=== PATIENT | female | born 1990 | race Caucasian/White ===

== ENCOUNTER 2025-03-30 08:28 | Outpatient (OUT) | payer BC, SELFPAY ==
--- OUTSIDE RECORDS SUMMARY | 2025-03-20 05:22 | XMS_ITS | Continuity of Care Document ---
Author Organization [facility] Address [address] [place] [address] Phone Care Team Providers Care Dope Firer Name Role Phone Angy Vargas APRN Primary Care Provider Nicole Tyson MD Emergency Provider [phone] Sourav Mojica MD Admit Provider Miguel Mcgrath MD Attending Provider [phone] Angy Vargas APRN Attending Provider Care Teams Patient Care Team Team Status: Active Member Role/Relationship Status Dates Angy Vargas APRN Primary Care Provider Active Visit Care Team Team Status: Inactive Member Role/Relationship Status Dates Angy Vargas APRN Primary Care Provider Active Start: March 17, 2025 End: March 17, 2025Jesse Will ProviderActiveStart: March 17, 2025 End: March 17, 2025Levi Guillermo ProviderActiveStart: March 17, 2025 End: March 17ndLili Calderon ProviderActiveStart: March 17, 2025 End: March 17, 2025 Patient Care Team Team Status: Inactive Member Role/Relationship Status Dates Angy Vargas APRN Primary Care Provider Active Start: March 20, 2025 End: March 20, 2025Margarita Pickett ProviderActiveStart: March 20, 2025 End: March 20, 2025 Chief Complaint and Reason for Visit Chief Complaint Admit Date lt side pain, n/v March 17, 2025 12:17am pyelonephritis March 20, 2025 9:18am Reason for Visit Admit Date Pyelonephritis March 17, 2025 12:17am Reason for Referral Type Reason(s) Provider Provider Contact Information Gustabo rahman Address Start Date Follow-up with your Primary Care Provider, call office to reschedule if needed. Angy Vargas , APRNWork Phone: fpg [address], [address] [place] [address] Allergies, Adverse Reactions, Alerts Allergen Type Severity Reaction Last Updated Verified Status amoxicillin Allergy Unknown Hives February 9:34am Yes Active erythromycin base Allergy Unknown Hives Novembe 2024 9:34am Yes Active Penicillins Allergy Unknown Hives February 9:34am Yes Active Sulfa (Sulfonamide Antibiotics) Allergy Unknown Anaphylaxis March 20, 2025 9:34am Yes Active Social History Smoking Status Status Start Date End Date Date of Observa tion Never smoked tobacco (finding) March 17, 2025 2:24am Observation Status Observation Response Date of Response Legal Sex Female (finding) Sex Assigned At BirthFemaleA1990Pregnancy StatusNNove2024 Family History Relationship Condition Age at Onset Recorded Date/T lexi father Aortic aneurysm Unknown HypertensionUnknownCalculus of kidneyUnknownmotherDiabetes mellitusUnknown HypertensionUnknownGlaucomaUnknownMalignant neoplasm of cervixUnknown EndometriosisUnknownCyst of ovaryUnknownCerebrovascular accident (CVA)Unknownson Adopted childUnknowndaughterAdopted childUnknownfamily memberType 2 diabetes mellitusUnknownMalignant neoplasmUnknown Problems Active Problems Problem Diagnosis/Recorded Date Onset Date Status C omments Irregular menses October 18, 2024 10:58am Unknown Active Preglaucoma, unspecified, left eyeJune 2024 8:45amUnknownActiveInfertility October 16, 2024 8:37amUnknownActiveAnxietyJune 2024 8:37amUnknownActive DepressionJune 2024 8:37amUnknownActivePyelonephritisNovember 2024 12:56amUnknownActiveFibrocystic breastJune 2024 8:44amUnknownActive bilateralIron deficiency anemiaJune 2024 9:20amUnknownActiveEndometriosis October 16, 2024 8:38amUnknownActiveInactive/Resolved Problems Problem Diagnosis/Recorded Date Onset Date Status C omments Preglaucoma, unspecified, bilateral October 16, 2024 8:44am Unknown Resolved Medications Medication Status Dose Units Route Directions Qty Days Refills S tart Date Stop Date End Date Reason(s) Instructions Adherence Acetaminophen 500 mg Tablet Discontinued 1000 MG PO Every 6 hours as needed for Pain Scale 1 - 3 or fever 0 0March 17, 2025 12:00amNovember 2024 9:37amCiprofloxacin Hcl 500 mg qkfimdOnpzji573RTVGLcjos hauin2346UyckbpbbMarch 17, 2025 12:00amnext dose 03/17/25 pmComplies with drug therapyOndansetron Hcl 4 mg tqywbqUxucrx7EFIZMocmb 8 hours6 2024 12:00amComplies with drug therapy Procedures Procedure Date Performed Status CT abdomen pelvis w con March 16, 2025 10:5 1pm completed Urine Culture March 16, 2025 completed Relevant Diagnostic Tests and/or Laboratory Data Laboratory Results Test Collection Date/Time Result Date/Time Result Interpretation Reference Range Result Comment Performing Site Corrected White Blood Count March 17, 2025 7:33am March 17, 2025 8:29am 5.5 10*3/uL 3.8-11.[address] [place] [address] Ctr [id number] [address] [facility] 99827Fbzosygwodi WBC CountNov2024 7:33amNovember 2024 8:29am5.5 10*3/uL3.8-11.6FGrand [facility] [id number] [address] [facility] 32820Elz Blood CountNov2024 7:33amNovember 2024 8:29am4.39 10*6/uL3.60-5.00[facility] [id number] [address] [facility] 49375YgstuuiezmGywecxxu 2024 7:33amNovember 2024 8:29am 12.6 g/dL11.8-15.4FGrand [facility] [id number] [address] [facility] 50444FevcfbxjijUbllwvvw 2024 7:33amNovember 2024 8:29am 37.6 %34.0-46.4FGrand [facility] [id number] [address] [facility] 80006Qnop Corpuscular VolumeNovember 2024 7:33amNovember 2024 8:29am85.6 yW57-746DjbbcnkhgFairfield Medical Center [facility] [id number] [address] [facility] 57409Mldf Corpuscular HemoglobinNovember 2024 7:33amNovember 2024 8:29am28.8 pg24.7-34.3FGrand [facility] [id number] [address] [place] [address] 36157Mwga Corpuscular Hemoglobin ConcentNovember 2024 7:33am March 17, 2025 8:29am33.6 g/dL32.0-35.0[facility] [id number] [address] [place] [address] 27900Chs Cell Distribution WidthNovember 2024 7:33amNovember 2024 8:29am12.8 %11.9-15.3FGrand [facility] [id number] [address] [facility] 95709Dukivdak CountNovember 2024 7:33amNovember 2024 8:75mx337 10*3/aO675-918QspzmrobtFairfield Medical Center [facility] [id number] [address] [place] [address] 38793Ekkb Platelet VolumeNovember 2024 7:33amNovember 2024 8:29am8.6 fL6.3-10.7FGrand [facility] [id number] [address] [facility] 78092Ehkxqbgy Distribution WidthNovember 2025 8:51pmNovember 2024 10:12pm23.57 %Above high normal0.00-20.00For adults in ED, MDW > 20.0 may be associated with a higher risk of sepsis during the first 12 hrs of hospital admissionFairfield Medical Center [facility] [id number] [address] [facility] 601[address]Cucsaxashts (%) (Auto)March 17, 2025 7:33amNovember 2024 8:29am73.8 %.[facility] [id number] [address] [facility] 92486Ezcnsupasfv (%) (Auto)March 17, 2025 7:33amNovember 2024 8:29am18.6 %.[facility] [id number] [address] [facility] 18127Oaajxpsxc (%) (Auto)March 17, 2025 7:33amNovember 2024 8:29am7.1 %.[facility] [id number] [address] [facility] 63182Nxqocnajaig (%) (Auto)March 17, 2025 7:33amNovember 2024 8:29am0.3 %.[facility] [id number] [address] [facility] 73125Soyxtzrzr (%) (Auto)March 17, 2025 7:33amNovember 2024 8:29am0.2 %.[facility] [id number] [address] [facility] 85716Yvvvsuref RBC Relative Count (auto)March 17, 2025 7:33am March 17, 2025 8:29am0.1 /100{WBC}0-0.5FGrand [facility] [id number] [address] [facility] 284[address]Awgqtwpdkcq # (Auto)March 17, 2025 7:33amNovember 2024 8:29am4.0 10*3/uL1.8-7.7FGrand [facility] [id number] [address] [place] [address] 10309Hojdwxliees # (Auto)March 17, 2025 7:33amNovember 2024 8:29am1.0 10*3/uL1.00-4.8[facility] [id number] [address] [facility] 06733Otpegqrxz # (Auto)March 17, 2025 7:33amNovember 2024 8:29am0.4 10*3/uL0.0-0.8[facility] [id number] [address] [facility] 20996Ngfcubqmsaa # (Auto)March 17, 2025 7:33amNovember 2024 8:29am0.0 10*3/uL0.0-0.45[facility] [id number] [address] [place] 7987[address]Basophils # (Auto)March 17, 2025 7:33amNovember 2024 8:29am0.0 10*3/uL0.0-0.2FGrand [facility] [id number] [address] [facility] 434[address]Eslqm ColorNovember 2024 9:08pmNovember 2024 9:22pm YellowYellowFairfield Medical Center Ctr [id number] [address] [facility] 31133Tfrag AppearanceNovember 2024 9:08pmNovember 2024 9:22pmCloudyAbnormal (applies to non-numeric results)ClearFairfield Medical Center [facility]tr [id number] [address] [facility] 45278Vvtaz Specific GravityNov2024 9:08pmNovember 2024 9:22pm1.032Above high normal1.001-1.030[facility] [id number] [address] [facility] 30207Islzj pHNovember 2024 9:08pmNovember 2024 9:22pm7.0 5.0-9.0[facility] [id number] [address] [facility] 31572Olfob Leukocyte EsteraseNov2024 9:08pmNov2024 9:22pm3+Above high normalNegativeFairfield Medical Center C[facility] [id number] [address] [facility] 26572Mgued NitriteNovember 2024 9:08pmNovember 2024 9:22pmPositiveAbove high normalNegativeFirarcanums [facility] [id number] [address] [facility] 32586Mguiv ProteinNovember 2024 9:08pmNovember 2024 9:22pm30 mg/dLAbove high normalNegativeFairfield Medical Center [facility] [id number] [address] [facility] 78416Kjdhv Glucose (UA)March 16, 2025 9:08pmNov2024 9:22pmNormal mg/dLNormalFairfield Medical Center Ctr [id number] [address] [facility] 92172Qhgxj KetonesNov2024 9:08pmNovember 2024 9:22pm4+Above high normalNegativeFairfield Medical Center C[facility] [id number] [address] [facility] 41895Wvovg UrobilinogenNov2024 9:08pmNov2024 9:22pm2 mg/dLAbove high normalNormalFairfield Medical Center Ctr [id number] [address] [facility] 41[address]Vulaf BilirubinNov2024 9:08pmNovember 2024 9:22pmNegativeNegativeFirKettering Health [facility] [id number] [address] [facility] 20492Gqkxq Occult BloodNov2024 9:08pmNovember 2024 9:22pmTraceAbove high normalNegativeFairfield Medical Center C[facility] [id number] [address] [facility] 57507Ldrle RBCNovember 2024 9:08pmNovember 2024 9:25pm5- 9 [HPF]Above high normal0-4FGrand [facility] [id number] [address] [facility] 45857Yfgou WBCNovember 2024 9:08pmNovember 2024 9:25pm5- 9 [HPF]Above high normal0-4FGrand [facility] [id number] [address] [facility] 63685Ivijg Squamous Epithelial CellsNovember 2024 9:08pm March 16, 2025 9:71ge4-1 [HPF]Above high normal0-2FGrand [facility] [id number] [address] [facility] 15287Kntky BacteriaMarch 16, 2025 9:08pmMarch 16, 2025 9:25pm4+ [HPF]Above high normalNone SeenFairfield Medical Center Ctr [id number] [address] [facility] 60962Aeqng Hyaline CastsMarch 16, 2025 9:08pmMarch 16, 2025 9:25pmNone [LPF]0-8[facility] [id number] [address] [facility] 88083Temwi MucusNov2024 9:08pmMarch 16, 2025 9:25pm 3+ [LPF]Abnormal (applies to non-numeric results)[facility] [id number] [address] [facility] 19028Hyfcc HCG, QualitativeMarch 16, 2025 9:08pmMarch 16, 2025 9:23pmNegativeFairfield Medical Center Ctr [id number] [address] [facility] 385[address]Zylxakh LevelMarch 17, 2025 7:33amNove2024 8:46am99 mg/mO59-600UEV recommended reference rangeRandom Glucose Reference Range is dependent on time and content of last meal. Glucose of more than 200 mg/dL in a nonstressed, ambulatory subject supports the diagnosisof Diabetes Mellitus.[facility] [id number] [address] [facility] 01323Miycm Urea NitrogenMarch 17, 2025 7:33amNovember 2024 8:46am8 mg/dL7-25[facility] [id number] [address] [facility] 39011SkegwvxpetKwtuthfz 22nd, 2025 7:33amNovember 2024 8:46am 0.63 mg/dL0.60-1.20[facility] [id number] [address] [facility] 15485Uzdcxemhc GFR (CKD-EPI)March 17, 2025 7:33amNove2024 8:46am> 60.0 mL/MinFairfield Medical Center Ctr [id number] [address] [facility] 84511Lmykra LevelNovember 2024 7:33amNovember 2024 8:95sg976 mmol/H224-262RbdlpjjziFairfield Medical Center Ctr [id number] [address] [facility] 86655Tywvceeus LevelNovember 2024 7:33amNovember 2024 8:46am3.4 mmol/LBelow low normal3.5-5.1FGrand [facility] [id number] [address] [facility] 36034Llsnspnj LevelNovember 2024 7:33amNovember 2024 8:04jy046 mmol/O55-589RdhtpaicvFairfield Medical Center Ctr [id number] [address] [facility] 43182Ltnaok Dioxide LevelNovember 2024 7:33amNovember 2024 8:46am23.0 mmol/L21.0-31.0[facility] [id number] [address] [facility] 93977Nzuxm GapNovember 2024 7:33amNovember 2024 8:46am 10.4 mEq/L6.0-15.0[facility] [id number] [address] [facility] 76731Xzyuydc LevelNovember 2024 7:33amNovember 2024 8:46am8.6 mg/dL8.6-10.3FGrand [facility] [id number] [address] [place] [address]87[address]Magnesium LevelNovember 2024 7:33amNovember 2024 8:46am1.9 mg/dL1.9-2.7FGrand [facility] [id number] [address] [facility] 64395Nzrfp ProteinNovember 2024 8:51pmNovember 2024 10:21pm8.0 g/dL6.4-8.9[facility] [id number] [address] [facility] 94905SgfgxiwYfjlurzg 2024 8:51pmNov2024 10:21pm4.9 g/dL3.5-5.7FGrand [facility] [id number] [address] [facility] 47364OfnyzhykThhgwmxx 21st, 2025 8:51pmNov2024 10:21pm 3.1 g/dLFairfield Medical Center Ctr [id number] [address] [facility] 77652Naimqzx/Globulin RatioNovember 2024 8:51pmNov2024 10:21pm1.6FGrand [facility] [id number] [address] [facility] 70215Wypqr BilirubinMarch 16, 2025 8:51pmNov2024 10:21pm0.7 mg/dL0.3-1.0[facility] [id number] [address] [facility] 03959Kxwejs BilirubinMarch 16, 2025 8:51pmNov2024 10:21pm0.10 mg/dL0.03-0.18FGrand [facility] [id number] [address] [facility] 11999Jpqakerw BilirubinMarch 16, 2025 8:51pmNov2024 10:21pm0.6 mg/dLFairfield Medical Center Ctr [id number] [address] [facility] 98789Iulxzbalw Amino Transf (AST/SGOT)March 16, 2025 8:51pm March 16, 2025 10:21pm18 U/A02-72XskkdtowtFairfield Medical Center Ctr [id number] [address] [facility] 78819Cvjxjda Aminotransferase (ALT/SGPT)March 16, 2025 8:51pm March 16, 2025 10:21pm17 U/L7-52[facility] [id number] [address] [facility] 79424Ddopauis PhosphataseMarch 16, 2025 8:51pmNov2024 10:21pm87 U/T96-777WnfjtqajdFairfield Medical Center Ctr [id number] [address] [facility] 19827GwjzmpVcptavai 21st, 2025 8:51pmNov2024 10:21pm20.0 U/L11.0-82.0[facility] [id number] [address] [place] [address] 98129Tlqjikwy Creatinine Clearance (ChemMarch 17, 2025 7:33am March 17, 2025 8:84ha469.53[facility] [id number] [address] [place] [address] Microbiology Results Procedure Source Result Collection Date/Time Result Date/Time Result Comment Performing Site Urine Culture Urine, Clean-Voided Midstream Escherichia coli March 16, 2025 9:08pm March 18, 2025 9:51am [facility] [id number] [address] [place] [address]46 Diagnostic Imaging Reports Author Luke Nicole [facility] HospitalAuthoredMarch 16, 2025 11:11pmReport Dictated Date/TimeDictated ByStatusRadiology ReportMarch 16, 2025 11:11pm [facility] [place] [address] [place], [place] [address] CT Scan Report Signed Patient: Joyce Godwin MR#: [id number] : 1990 Acct:[id number] Age/Sex: 34 / F ADM Date: 5 Loc: ER Room: Type: [facility] ER Attending Dr: Copies to: Nicole Tyson MD~ Ordering Provider: Nicole Tyson MD Date of Service: 03/16/25 CT/CT abdomen pelvis w con: abdominal pain, periumbilical CT Abdomen and Pelvis withcontrast TECHNIQUE: Axial imaging with 2-D reconstruction. The CT exam was performed using one or more the following dose reduction techniques: Automated exposure control, adjustment of the MA and/or Kv according to patient size, or use of the iterative reconstruction technique. COMPARISON: None History: Periumbilical abdominal pain LIMITATIONS: None LOWER THORAX Unremarkable LIVER: Unremarkable GALLBLADDER: No gallbladder abnormality identified. BILE DUCTS: No dilatation SPLEEN: Unremarkable PANCREAS: Unremarkable ADRENAL GLANDS: Unremarkable KIDNEYS:Unremarkable AORTA: No abdominal aortic aneurysm identified. RETROPERITONEUM: No significant retroperitoneal abnormalities identified. MESENTERY:Unremarkable STOMACH:Unremarkable SMALL BOWEL: The small bowel loops are nondistended. APPENDIX: The appendix is normal. COLON: Unremarkable URINARY BLADDER: Urinary bladder is unremarkable. REPRODUCTIVE SYSTEM: Reproductive structures are unremarkable. PNEUMOPERITONEUM: None PERITONEAL FLUID:None BONY STRUCTURES: Unremarkable ABDOMINAL WALL: Unremarkable CT/CT abdomen pelvis w con IMPRESSION: No acute findings. Impression dictated by: Luke Nicole M.D. 03/16/2025 11:12 PM Dictation Location: [place] [address] Transcribed By: [facility] 03/16/252311 Dictated By: Luke Nicole DO 03/16/252310 Signed By: <Electronically signed by Luke Nicole DO in OV> 03/16/252311 Vital Signs Vital Reading Result Reference Range Collection Date/Time Height 65 [in_i] March 17, 2025 2:96vcOfefem94.80 kgNovember 2024 2:23amBody Uiihnmctwwk67.7 [degF]97.6-99.0Nov2024 9:42amHeart Rate93 /bzh25-130 March 17, 2025 9:42amRespiratory rate17 /nyr11-04GiszzaboMarch 17, 2025 9:42am Oxygen saturation by Pulse txobeusu38 %95-100March 17, 2025 9:42amBP Tkgrzkup439 mm[Hg]100-140March 17, 2025 9:42amBP Whuehzgte93 mm[Hg]60-100 March 17, 2025 9:40osBaaqti25 [in_i]March 20, 2025 9:52mbSewioa80.76 kgNov2024 9:33amBody Rnwmxpinpyi72.3 [degF]97.6-99.0March 20, 2025 9:33amHeart Rate65 /jsb45-062CfeulizoMarch 20, 2025 9:33amRespiratory rate20 /cod48-11SdrvjfhkMarch 20, 2025 9:33amOxygen saturation by Pulse gvvudolr71 %95-100 March 20, 2025 9:33amBP Xbhuqxpj916 mm[Hg]100-140March 20, 2025 9:33am BP Ciurwmbyp77 mm[Hg]60-100March 20, 2025 9:33amBMI (Body Mass Index)25.9 kg/i2TgccbyevMarch 20, 2025 9:33am Advance Directives Advance Directive Response Recorded Date/ Time Advance Directives No October 11 2:51pm Insurance Providers Guarantor Joyce Godwin Address [address] [facility] [address]Ztihyvl Info.Home Phone: Coverage Status Update:2024 Payer Group Member ID Coverage Type Subscriber Relationship to Subscriber Effective Date Expiration Date MMO Id: [id number] F Godwin Id: [id number] [address] [facility] [address] Home Phone: anthem BC/BS [id number] F Godwin Id: [id number] [address] [facility] [address] Home Phone: Encounters Encounter Location(s) Arrival/Admit Date Discharge/Departure Date Discharge/Departure Disposition [facility]) [facility], [facility] 12:17am March 17, 2025 1:50pm Discharged to home care or self care (routine discharge) Miguel Mcgrath MD Departed Physician/ Provider Office Visit -[facility] March 20, 2025 9:18am March 20, 2025 10:13am Discharged to home care or self care (routine discharge) Angy Vargas , KRISTEN Recent Diagnosis Onset Date Admit Date Pyelonephritis Unknown March 17 12:17am Functional Status Observation Response Date Recorded Dressing Patient at Baseline February 2:24pm Eating Patient at Baseline February 2:24pm Bathing Patient at Baseline February 2:24pm Disability Status Patient at Baseline February 252024 2:24pm Mental Status Observation Response Date Recorded Cognitive Status Patient at Baseline March 172024 2:24pm Cognitive/Mental Status Assessments Assessments Diagnosis Onset Date Resolution Status Admit Date Pyelonephritis acuteNovember 2024 12:17am Plan of Treatment Future Tests Future scheduled test information is unavailable Pending Tests Pending diagnostic test information is unavailable Future Visits Future appointment information is unavailable Future Procedures Procedure Name Ordered Date Scheduled Date Admit Status Order March 17, 2025 12:17am N ovember 2024 12:18am Discharge Order March 17, 2025 11:28am Tone carl 2024 11:28am Future Medications Future medication information is unavailable Patient Instructions Instruction Admit Date Ciprofloxacin (Systemic) Know your MedsPsychiatric 2024 12:17am Goals Preferences Type Detail Treatment Intervention Code Status: Full Code
[2025-03-30 09:29] LABS: Glucose Urine UA NEGATIVE (NEGATIVE)
== END 2025-03-30 08:29 | disposition home or self-care (01) ==
LOC: LAB 08:33
PROVIDERS: PCP Nurse Practitioner Family; Visit Provider Nurse Practitioner Family
DX: N39.0 Urinary tract infection, site not specified (principal)
CPT/HCPCS: 81003; 87086